=== PATIENT | male | born 2000 | race Caucasian/White ===

== ENCOUNTER 2025-06-03 10:33 | Emergency (ER) | payer BC, SELFPAY ==
[2025-06-03 10:48] VITALS: BP 148/71; PULSE 77; RESP 16; TEMP 36.9; O2SAT 99
--- NOTE | 2025-06-03 11:03 | ED.GENADULT ---
HPI - General Adult General Chief complaint: Skin/Abscess/Foreign Body Stated complaint: Rash Time Seen by Provider: 06/03/25 11:03 Source: patient Mode of arrival: ambulatory Limitations: no limitations History of Present Illness HPI narrative: 25-year-old male patient presents to [facility] with complaints of a rash to bilateral arms x3 days. Patient states he works for a [employer] it was walking in a corn field on Thursday. Patient states after work he came home took a shower and later on Thursday night discovered he was started to have get a rash to his left arm. Patient states his continued to spread now is over bilateral arms and starting to show up to the left lower leg. Denies any chest pain shortness of breath. Denies fevers body aches or chills. Patient states he has been using some [id number] topical ointment on the rash but denies taking any oral antihistamines. Related Data Allergies Allergy/AdvReac Type Severity Reaction Status Date / Time No Known Drug Allergies Allergy none Verified 06/03/25 10:56 Review of Systems Review of Systems: CONSTITUTIONAL: Denies fever, chills, or sweats. EYES: Denies visual changes, redness, or discharge. ENT: Denies rhinorrhea, congestion, sore throat, or otalgia. CARDIOVASCULAR: Denies chest pain, palpitations, or edema. RESPIRATORY: Denies cough or dyspnea. GASTROINTESTINAL: Denies abdominal pain, nausea, vomiting, or diarrhea. GENITOURINARY: Denies dysuria or hematuria. SKIN: Positive rash with itching to bilateral upper extremities x3 days. MUSCULOSKELETAL: Denies back pain, joint pain, or myalgia. NEUROLOGIC: Denies headache, numbness, or weakness. PSYCHIATRIC: Denies anxiety or depression. [facility] Past Medical History Medical History (Updated 06/03/25 @ 11:13 by MICHAEL Blancas) No significant past medical history Comments At the time of my signature I agree with nursing past medical history, surgical, social, and family history. There is no relevant family history pertinent to the presenting complaint. Exam Narrative: GENERAL: Well-appearing, well-nourished, and in no acute distress. HEAD: Normocephalic, atraumatic. EYES: PERRLA and EOMI. ENT: Nares clear, no rhinorrhea or epistaxis. Mucous membranes moist. NECK: Supple. No lymphadenopathy CHEST: Clear to auscultation. No respiratory distress. HEART: Regular rate and rhythm. No murmur heard. Normal peripheral pulses. ABDOMEN: Soft, nontender, nondistended, normal active bowel sounds. EXTREMITIES: Normal range of motion. No edema. SKIN: Warm, dry, patient has a raised papule rash with some vesicles noted in linear forms and clusters noted to bilateral upper extremities below the elbow. There is a slight notable yellow serous sanguinous fluid noted from some of the vesicles. NEURO: No focal deficits. Alert and oriented x3. Course Course Level of Care: Express Care Visit Vital Signs Vital signs: Vital Signs Temperature 36.9 C 06/03/25 10:48 Pulse Rate 77 06/03/25 10:48 Respiratory Rate 16 06/03/25 10:48 Blood Pressure 148/71 H 06/03/25 10:48 Pulse Oximetry 99 06/03/25 10:48 Oxygen Delivery Room Air 06/03/25 10:48 Temperature 36.9 C 06/03/25 10:48 Pulse Rate 77 06/03/25 10:48 Respiratory Rate 16 06/03/25 10:48 Blood Pressure 148/71 H 06/03/25 10:48 Pulse Oximetry 99 06/03/25 10:48 Oxygen Delivery Room Air 06/03/25 10:48 Vital signs reviewed. The patient has been informed that they may have pre-hypertension or Hypertension based on a BP reading in the department. I recommend that the patient call the primary care provider listed on their discharge instructions or a physician of their choice this week to arrange follow up for further evaluation of possible pre-hypertension or Hypertension Medical Decision Making MDM Narrative Medical decision making narrative: Plan of care for patient is discharge home with oral steroids and topical steroid ointment for the rash. I highly recommended he takes the daily Zyrtec or oral antihistamine to help with the itching. Patient verbalized understanding denies any other questions or concerns at this time. Differential Diagnosis Differential Diagnosis: Differential diagnosis: Contact dermatitis, poison minnie, poison sumac, psoriasis, eczema, allergic reaction, drug reaction, scabies, tinea syphilis, lung disease, viral exanthema, pityriasis, erythema multiforme. Vital Signs Vital Signs: Vital Signs Temperature 36.9 C 06/03/25 10:48 Pulse Rate 77 06/03/25 10:48 Respiratory Rate 16 06/03/25 10:48 Blood Pressure 148/71 H 06/03/25 10:48 Pulse Oximetry 99 06/03/25 10:48 Oxygen Delivery Room Air 06/03/25 10:48 Temperature 36.9 C 06/03/25 10:48 Pulse Rate 77 06/03/25 10:48 Respiratory Rate 16 06/03/25 10:48 Blood Pressure 148/71 H 06/03/25 10:48 Pulse Oximetry 99 06/03/25 10:48 Oxygen Delivery Room Air 06/03/25 10:48 Critical Care Time Critical Care Time Critical Care Time: No Discharge Plan Discharge Clinical Impression: Allergic contact dermatitis due to plant Patient Disposition: Home Condition: Stable Instructions: Antibiotic Form, Contact Dermatitis (ED) Additional Instructions: Wash the area with soap and cool water only. Use skin creams/lotion or anti-itch medicine to reduce itchiness Avoid scratching when possible to prevent worsening of the condition and disruption of the skin that could lead to bacterial infection To relieve itching, place a cool washcloth or some ice over the area that itches, rather than scratching Follow up with primary care provider or seek ER if you have trouble breathing, become hoarse, or start wheezing, develop belly cramps, vomiting or feel dizzy. Patient Language: Turkish Prescriptions: New triamcinolone acetonide 0.5 % cream 1 applic topical TID Qty: 15 0RF prednisone 10 mg tablets,dose pack See Rx Instructions .ROUTE .COMPLEX Qty: 48 0RF Rx Instructions: 50 mg x 3 days, 40 mg x 3 days, 30 mg x 3 days, 20 mg x 3 days, 10 mg x 3 days Follow-up/Referrals: PHYSICIAN,DECORATING MACHINE TENDER [Primary Care Provider] - Time of Disposition: 11:10
== END 2025-06-03 11:18 | disposition home or self-care (01) ==
PROVIDERS: Emergency Provider Nurse Practitioner Family
DX: L23.7 Allergic contact dermatitis due to plants, except food (principal)
CPT/HCPCS: 99213; G0463